=== PATIENT | male | born 1995 | race Hispanic/Latino ===

== ENCOUNTER 2020-10-17 21:38 | Emergency (ER) | payer OTHER ==
[2020-10-17] MEDS ORDERED: IBUPROFEN 600 MG TABLET ONE (22:04)
== END 2020-10-17 22:57 | disposition home or self-care (01) ==
LOC: EDH 21:38
DX: R07.89 Other chest pain (principal); V49.49XA Driver injured in collision with other motor vehicles in traffic accident, initial encounter; Y93.89 Activity, other specified; Y92.89 Other specified places as the place of occurrence of the external cause; Y99.8 Other external cause status
CPT/HCPCS: 71045; 93005